=== PATIENT | female | born 1970 | race Caucasian/White ===

== ENCOUNTER 2018-11-03 06:53 | Emergency (ER) | payer BC, OTHER ==
[~2018-11-03] VITALS: Ht 160 cm; Wt 104.0 kg
[~2018-11-03 06:53] MED LIST: BEN25 PO; IBUP-1542 PO; MUPI22OI2 TOP
[2018-11-03 06:56] VITALS: BP 139/76; PULSE 100; RESP 17; Ht 160 cm; Wt 104.0 kg
== END 2018-11-03 07:43 | disposition home or self-care (01) ==
LOC: FTE 06:53
DX: S80.861A Insect bite (nonvenomous), right lower leg, initial encounter (principal); E11.9 Type 2 diabetes mellitus without complications; S80.862A Insect bite (nonvenomous), left lower leg, initial encounter; W57.XXXA Bitten or stung by nonvenomous insect and other nonvenomous arthropods, initial encounter; Y92.9 Unspecified place or not applicable
CPT/HCPCS: 99283